=== PATIENT | female | born 2005 | race African-American/Black ===

== ENCOUNTER 2025-03-01 13:26 | Emergency (ER) | payer OTHER, BC ==
[~2025-03-01] VITALS: Ht 157.5 cm; Wt 70.0 kg
[2025-03-01] MEDS ORDERED: ACETAMINOPHEN 500 MG TAB PO ONE (15:00)
[2025-03-01] MEDS ORDERED: IBUPROFEN 600 MG TAB PO ONE (15:00)
[2025-03-01 15:37] VITALS: BP 130/86
== END 2025-03-01 15:30 | disposition home or self-care (01) ==
LOC: ED 13:26
DX: S83.005A Unspecified dislocation of left patella, initial encounter (principal); W51.XXXA Accidental striking against or bumped into by another person, initial encounter; Z88.0 Allergy status to penicillin; Z91.018 Allergy to other foods; Z91.013 Allergy to seafood
CPT/HCPCS: 73560; 99283; A9270